=== PATIENT | male | born 1960 | race Caucasian/White ===

== ENCOUNTER 2017-05-04 14:20 | Emergency (ER) | payer OTHER ==
[~2017-05-04] VITALS: Ht 175.3 cm; Wt 82.9 kg
[~2017-05-04 14:20] MED LIST: ATV1 PO; IPRA1AER2 PO; LISI-729 PO
[2017-05-04 14:28] VITALS: TEMP 36.7; Ht 175.3 cm; Wt 82.9 kg
[2017-05-04] MEDS ORDERED: KETOROLAC TROMETHAMINE 60 MG/2 ML VIAL IM STA (15:06)
--- NOTE | 2017-05-04 15:20 | EMERGENCY ROOM VISIT NOTE ---
ED Visit Note First contact with patient: 14:58 CHIEF COMPLAINT: Low back pain HISTORY OF PRESENT ILLNESS: This 56-year-old male patient presents to the emergency department ambulatory, complaining of pain in the low back which began 3 days ago. The patient reports a history of degenerative disc disease in his lumbar spine, which he has been seeing his PCP for further past several years. The patient states over the past 3 days, the pain has worsened in his low back, and is now radiating down the posterior aspect of both legs. The patient states the pain in the back feels like "bones rubbing together". The patient states he took 2 ibuprofen this morning, which did not help with the symptoms. Patient has not taken any other pain medication. The patient denies injury or specific event leading up to the discomfort. He states the pain spontaneously seemed to become severe this morning when he awoke. The pain was gradual in onset, is now constant and worse with movement. The patient notes the pain as 10/10. The patient states he has seen several different primary care providers over the past few years due to change in insurance. He states he has not had appropriate follow-up regarding his back problem, and has not had it x-rayed in several years. She has not seen a specialist. He states he would like to have an injection done to help with his back pain. The patient denies any loss of control of their bowel or bladder functions. There has been no leg numbness or weakness, and no change in sensation. No nausea or vomiting or abdominal pain. No chest pain or shortness of breath. The patient has not had prior back injuries. No dysuria or increased urinary frequency. REVIEW OF SYSTEMS: A 10 system review of systems was performed with positives and pertinent negatives listed in the history of present illness. All other systems were reviewed and are negative. ALLERGIES: None MEDICATIONS: Lisinopril, Combivent PMH: Hypertension, COPD, degenerative disc disease SOCIAL HISTORY: Lives locally with family. He denies drug, alcohol use. The patient states he smokes approximately one pack of cigarettes per day. PHYSICAL EXAM: VITALS: Vitals are noted on the nurse's note and reviewed by myself. Vital signs stable. GENERAL: This is a 56-year-old male, in no acute distress, nondiaphoretic, well- developed well-nourished. SKIN: The skin was without rashes, erythema, edema, or bruising. Capillary refill less than 2 seconds. NECK: Supple without nuchal rigidity. No cervical spine tenderness. No paraspinous muscle tenderness. HEART: Regular rate and rhythm without murmurs gallops or rubs. LUNGS: Clear to auscultation bilaterally without wheezes, rales or rhonchi. ABDOMEN: Positive bowel sounds x 4. Normal tympanic percussion. Soft, nontender, without masses or organomegaly. Cardoza sign negative. MUSCULOSKELETAL: No muscle atrophy, erythema, or edema noted of the back. There is moderate tenderness over the lumbar spinous processes. There is no tenderness over the paraspinous muscles bilaterally. There is no tenderness over the thoracic spine or paraspinous muscles. There are no muscle spasms present. The patient is slow to move around with maximum tenderness with changing positions, standing from a lying position. Positive straight leg raise test bilaterally. NEURO: Patient was alert and oriented to person place and time. Normal sensation to light and sharp touch. Deep tendon reflexes 2+ in the lower extremities. Dorsalis pedis pulse 2+ bilaterally. Strength 5/5 and equal in the bilateral lower extremities. RADIOLOGY: X-ray lumbar spine: FINDINGS: Normal lumbar lordosis. Vertebral bodies maintain normal height and alignment. Minimal intervertebral disc height loss at L4-5 secondary to degenerative change. Additional degenerative change without disc height loss noted at L1-2. Neural foramina are suboptimally assessed secondary to positioning. Within this limitation, no gross evidence of osseous neural foraminal narrowing. Nonobstructive bowel gas pattern. No gross pneumoperitoneum. IMPRESSION: Degenerative change focally at L1-2 and L4-5. No radiographic evidence of osseous neural foraminal narrowing. EMERGENCY DEPARTMENT COURSE: The patient was seen and evaluated as above. He was given a dose of 60 mg Toradol IM. X-rays of the lumbar spine were performed and reviewed by myself and interpreted by radiologist. This showed degenerative change and L1/L2, and L4/L5. I discussed these findings with the patient at bedside. I discussed the patient case with Dr. Adams, who did see the patient and agrees with the assessment and plan. The patient did report significant improvement in symptoms with Toradol. He was discharged home in good condition. The patient's blood pressure in the ED was slightly elevated, but I do feel that this was situational. I reviewed the pt. in PDMP and did not note any suspicious findings. The only fill in the past year was for Lorazepam in June 2017. DIFFERENTIAL DIAGNOSIS: Sciatica, degenerative disc disease, lumbar strain, fracture, contusion, malignancy, and others DIAGNOSIS: Degenerative disc disease, sciatica DISCHARGE INSTRUCTIONS AND TREATMENT: You have been treated in the Emergency Department for Back Pain. You have been prescribed OxyIR to be used for pain control. This is a narcotic medication. You cannot drive or consume alcohol while on this medicine. This medicine should only be used for pain that cannot be controlled with over-the- counter pain medicines. You have been prescribed a Medrol Dosepak. This is a steroid which will help decrease your inflammation, redness, and itch. Take the medicine as prescribed. Take the ENTIRE 6 day course of the steroids. For pain control, you can use the following [id number] medicines (if >12 yo): Ibuprofen(Motrin, Advil) may be used for fever or pain. Use 600mg every six hours as needed. Take with food. Avoid using more than 2400mg in a 24 hour period. Do not use 2400mg per day for more than three consecutive days without physician direction. Prolonged inappropriate use can lead to stomach upset or ulcers. Do not use this medication while you are taking steroids (Medrol Dosepak) (AND/OR) Acetaminophen(Tylenol) may be used for fever or pain. Use 1000mg every six hours as needed. Avoid using more than 3000mg in a 24 hour period. If this is an acute injury, ice can be applied to the area of pain for the first 3 days to help decrease pain and inflammation. After the first 3 days, a heating pad can be used over the area for continued soothing relief. You should schedule a follow-up appointment in 2-3 days with your Primary Care Provider for further evaluation and treatment of your back pain. Consider follow-up with orthopedic spine surgeon. You've been provided with the name and contact information for Dr. Resendez. Return to the Emergency Department if your current symptoms worsen despite treatment course outlined above, or if you develop any of the following symptoms : intractable pain despite aforementioned treatment course, loss of control of your bowel or bladder, numbness or tingling in your groin, or development of a fever. Problem List Medical Problems: (1) Anxiety disorder Status: Chronic (2) Depressive disorder Status: Chronic (3) GERD (gastroesophageal reflux disease) Status: Chronic Surgical Problems: (1) History of carpal tunnel release of both wrists Status: Resolved (2) History of herniorrhaphy Status: Resolved (3) Hx of tonsillectomy Status: Resolved Current/Historical Medications Scheduled Ipratropium-Albuterol (Combivent Respimat), 3 PUFF PO BID Lisinopril (Zestril), 5 MG PO DAILY Methylprednisolone (Medrol Dosepak), 0 PO DAILY Scheduled PRN Oxycodone Ir (Roxicodone Ir), 1-2 TAB PO Q4H PRN for Pain Allergies Coded Allergies: No Known Allergies (Verified , 05/04/17) Vital Signs Date Time Temp Pulse Resp B/P (MAP) Pulse Ox O2 Delivery O2 Flow Rate FiO2 05/04/17 14:28 36.7 86 18 158/94 95 Room Air Medications Administered Medications (Trade) Dose Ordered Sig/Ruben Route Start Time Stop Time Status Last Admin Dose Admin Ketorolac Tromethamine (Toradol Inj) 60 mg NOW STAT IM 05/04/17 15:06 05/04/17 15:08 DC 05/04/17 15:27 60 MG Departure Information Impression Primary Impression: Sciatica Additional Impression: Degenerative disc disease, lumbar Dispostion Home / Self-Care Condition GOOD Prescriptions Oxycodone Ir (Roxicodone Ir) 5 Mg Tab 1-2 TAB PO Q4H Y for Pain, #15 TAB For Initial Treatment Prov: Tammy Fisher PA-C 05/04/17 Methylprednisolone (MEDROL DOSEPAK) 4 Mg Alin 0 PO DAILY, #1 PKT Prov: Tammy Fisher PA-C 05/04/17 Referrals No Doctor, Assigned (PCP) Justin Resendez D.O. Patient Instructions ED Sciatica, [facility] Additional Instructions You have been treated in the Emergency Department for Back Pain. You have been prescribed OxyIR to be used for pain control. This is a narcotic medication. You cannot drive or consume alcohol while on this medicine. This medicine should only be used for pain that cannot be controlled with over-the- counter pain medicines. You have been prescribed a Medrol Dosepak. This is a steroid which will help decrease your inflammation, redness, and itch. Take the medicine as prescribed. Take the ENTIRE 6 day course of the steroids. For pain control, you can use the following [id number]-eaoncyk medicines (if >12 yo): Ibuprofen(Motrin, Advil) may be used for fever or pain. Use 600mg every six hours as needed. Take with food. Avoid using more than 2400mg in a 24 hour period. Do not use 2400mg per day for more than three consecutive days without physician direction. Prolonged inappropriate use can lead to stomach upset or ulcers. Do not use this medication while you are taking steroids (Medrol Dosepak) (AND/OR) Acetaminophen(Tylenol) may be used for fever or pain. Use 1000mg every six hours as needed. Avoid using more than 3000mg in a 24 hour period. If this is an acute injury, ice can be applied to the area of pain for the first 3 days to help decrease pain and inflammation. After the first 3 days, a heating pad can be used over the area for continued soothing relief. You should schedule a follow-up appointment in 2-3 days with your Primary Care Provider for further evaluation and treatment of your back pain. Consider follow-up with orthopedic spine surgeon. You've been provided with the name and contact information for Dr. Resendez. Return to the Emergency Department if your current symptoms worsen despite treatment course outlined above, or if you develop any of the following symptoms : intractable pain despite aforementioned treatment course, loss of control of your bowel or bladder, numbness or tingling in your groin, or development of a fever. Problem Qualifiers Primary Impression: Sciatica Laterality: bilateral Qualified Codes: M54.31 - Sciatica, right side; M54.32 - Sciatica, left side
--- NOTE | 2017-05-04 15:49 | DIAGNOSTIC IMAGING REPORT ---
L-SPINE MIN 4 VIEWS ROUTINE CLINICAL HISTORY: 56 years-old Male presenting with low back pain with radiculopathy. TECHNIQUE: Frontal, bilateral oblique, and lateral views of the lumbar spine and coned in lateral view of the lumbosacral junction were obtained. COMPARISON: CT of abdomen and pelvis from 2015. FINDINGS: Normal lumbar lordosis. Vertebral bodies maintain normal height and alignment. Minimal intervertebral disc height loss at L4-5 secondary to degenerative change. Additional degenerative change without disc height loss noted at L1-2. Neural foramina are suboptimally assessed secondary to positioning. Within this limitation, no gross evidence of osseous neural foraminal narrowing. Nonobstructive bowel gas pattern. No gross pneumoperitoneum. IMPRESSION: Degenerative change focally at L1-2 and L4-5. No radiographic evidence of osseous neural foraminal narrowing. Electronically signed by: Que Felipe M.D. 05/04/2017 3:47 PM Dictated Date/Time: 05/04/2017 3:45 PM
[2017-05-04] MEDS ORDERED: OXYC1TAB3 PO (16:00)
[2017-05-04] MEDS ORDERED: METH4PAK PO (16:00)
--- NOTE | 2017-05-04 16:06 | EMERGENCY ROOM VISIT NOTE ---
ED Visit Note First contact with patient: 14:58 This Patient was discussed with the physician assistant credit manager, Tammy Fisher PA-C. The pertinent historical and physical exam findings were confirmed. I agree with the studies ordered and with the interpretations of these studies. I agree with the disposition and care plan.
[2017-05-04 16:17] VITALS: BP 136/91; PULSE 89; O2SAT 96
== END 2017-05-04 16:18 | disposition home or self-care (01) ==
LOC: C.EDB 14:21 → C.EDD 16:18
DX: M54.30 Sciatica, unspecified side (principal); M51.36 Other intervertebral disc degeneration, lumbar region; I10 Essential (primary) hypertension; J44.9 Chronic obstructive pulmonary disease, unspecified; K21.9 Gastro-esophageal reflux disease without esophagitis; F32.9 Major depressive disorder, single episode, unspecified; F41.9 Anxiety disorder, unspecified; F17.200 Nicotine dependence, unspecified, uncomplicated; Z79.899 Other long term (current) drug therapy; Z98.890 Other specified postprocedural states

== ENCOUNTER 2018-03-26 07:57 | Emergency (ER) | payer OTHER ==
[~2018-03-26] VITALS: Ht 175.3 cm; Wt 89.1 kg
[~2018-03-26 07:57] MED LIST changes: +ATV/1 PO; -ATV1 PO; +BUPR-79 PO; +FLUT1INH7; +VNTHFA/IN INH
[2018-03-26 07:58] VITALS: BP 152/91; PULSE 90; TEMP 36.6; O2SAT 94; Ht 175.3 cm; Wt 89.1 kg
--- NOTE | 2018-04-19 07:20 | EMERGENCY ROOM VISIT NOTE ---
ED Visit Note First contact with patient: 08:01 CHIEF COMPLAINT: Suture removal This patient returns to the ED today for removal of sutures that were placed 12 days ago. There has been no swelling, redness, or drainage from the wound. The patient feels like the laceration is healing well. REVIEW OF SYSTEMS: Head: No headache, injury or neck pain. Skin: No rash, new lesions, or masses. General: No fever or chills, fatigue, loss of appetite, or significant recent weight gain or loss. PMH: The patient is healthy; there is no significant medical or surgical history. SOCIAL HISTORY: Patient lives at home. PHYSICAL EXAM: Vital Signs: Reviewed Nurse's notes. There is a sutured wound with no signs of infection. There is no erythema, swelling, or tenderness. EMERGENCY DEPARTMENT COURSE: The sutures were removed without any difficulty and there was no separation of the wound edges. DIAGNOSIS: Healing laceration and suture removal DISCHARGE INSTRUCTIONS AND TREATMENT: Wash any remaining crusts off of the wound today and resume your normal activities.
== END 2018-03-26 08:11 | disposition home or self-care (01) ==
LOC: C.EDB 07:58 → C.EDA 08:11
DX: T14.8XXD Other injury of unspecified body region, subsequent encounter (principal); X58.XXXD Exposure to other specified factors, subsequent encounter